=== PATIENT | female | born 2000 | race Caucasian/White ===

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

== ENCOUNTER 2018-01-11 12:00 | Emergency (ER) | payer OTHER ==
[~2018-01-11] VITALS: Ht 170.2 cm; Wt 86.2 kg
--- NOTE | 2018-01-11 12:01 | NUR ---
PT BIBA ALS TO BED 10
[2018-01-11 12:02] VITALS: BP 118/69
--- NOTE | 2018-01-11 12:05 | NUR ---
PATIENT BIBA S/P SEIZURE LASTING 30-45 SECONDS, WITNESSED AT PT WORK. PATIENT STATES SHE WAS PERFORMING NORMAL DUTIES AND COULD FEEL A SEIZURE COMING. PATIENT REPORTS 4 TOTAL SEIZURES IN HER LIFETIME AND ANXIETY, BUT WAS NEVER RX MEDICATION FOR EITHER DIAGNOSIS. PATIENT APPEARS TO HAVE AN ABRASION TO FORHEAD 6 CM IN LENGTH ON THE RIGHT SIDE AND SWOLLEN TONGUE WITH SLIGHT LACERATION ABOUT 2CM IN LENGTH ON THE LEFT SIDE.DENIES N/V/D; SKIN IS PINK/WARM/DRY; AAOX4 WITH EVEN AND STEADY GAIT; LUNGS CLEAR BL; HR EVEN AND REGULAR; PT DENIES ANY FEVER, CP, SOB, OR COUGH AT THIS TIME; PATIENT STATES PAIN OF 6/10 AT THIS TIME; VSS; PATIENT POSITIONED FOR COMFORT; HOB ELEVATED; BEDRAILS UP X2, SZ PRECAUTIONS INITIATED; BED DOWN. ER MD MADE AWARE OF PT STATUS.
[2018-01-11 14:03] VITALS: BP 118/69
--- NOTE | 2018-01-11 14:03 | NUR ---
Patient discharged with v/s stable. Written and verbal after care instructions given and explained. Patient verbalized understanding. Ambulatory with steady gait. All questions addressed prior to discharge. Advised to follow up with PMD FOR NEUROLOGY REFERRAL.
== END 2018-01-11 14:03 | disposition home or self-care (01) ==
LOC: MED 12:00
DX: S00.81XA Abrasion of other part of head, initial encounter (principal); R56.9 Unspecified convulsions; X58.XXXA Exposure to other specified factors, initial encounter; Y93.89 Activity, other specified; Y92.89 Other specified places as the place of occurrence of the external cause; Y99.8 Other external cause status
CPT/HCPCS: 99283

== ENCOUNTER 2021-03-12 19:23 | Emergency (ER) | payer OTHER ==
[~2021-03-12] VITALS: Ht 170.2 cm; Wt 108.0 kg
[2021-03-12 20:01] VITALS: BP 113/72
== END 2021-03-12 22:29 | disposition left against medical advice (07) ==
LOC: MED 19:23
DX: R51.9 Headache, unspecified (principal); Z53.21 Procedure and treatment not carried out due to patient leaving prior to being seen by health care provider

== ENCOUNTER 2021-03-14 21:31 | Emergency (ER) | payer OTHER ==
[~2021-03-14] VITALS: Ht 170.2 cm; Wt 93.0 kg
[2021-03-14 21:40] VITALS: BP 93/70
[2021-03-15] MEDS ORDERED: KETOROLAC 30 MG/ML VIAL IM ONE ×2 (00:20→02:15)
[2021-03-15] MEDS ORDERED: PROCHLORPERAZINE 5 MG TAB PO ONE (00:20)
[2021-03-15] MEDS ORDERED: DIPH25TA53 PO (02:25)
[2021-03-15] MEDS ORDERED: PROC-66 PO (02:25)
[2021-03-15 02:37] VITALS: BP 89/63
== END 2021-03-15 02:35 | disposition home or self-care (01) ==
LOC: MED 21:31
DX: G43.909 Migraine, unspecified, not intractable, without status migrainosus (principal); F41.9 Anxiety disorder, unspecified; Z79.899 Other long term (current) drug therapy
CPT/HCPCS: 81025; 99283; Q0163; Q0164; J1885

== ENCOUNTER 2022-08-05 14:37 | Emergency (ER) | payer OTHER ==
[~2022-08-05] VITALS: Ht 170.2 cm; Wt 107.7 kg
[~2022-08-05 14:37] MED LIST: DIPH25TA53 PO; PROC-66 PO
[2022-08-05 14:59] VITALS: BP 92/69
--- NOTE | 2022-08-05 15:07 | NUR ---
PT AMB TO BED 2.
--- NOTE | 2022-08-05 15:40 | NUR ---
22 Y/O FEMALE BIB SELF C/O "FEELING WEAK" AND NVX1-2 WEEKS. PER PT 1 EPISODE YESTERDAY. DENIES ANY BLOOD IN VOMITUS, ABD PAIN, DIARRHEA. NKA PMH: PSYCHOSOMATIC SEIZURES
[2022-08-05] MEDS ORDERED: ONDANSETRON 4 MG ODT PO ONE (15:45)
[2022-08-05] MEDS ORDERED: LORazepam 1 MG TAB PO ONE (15:45)
[2022-08-05] MEDS ORDERED: MECLIZINE 25 MG TAB PO ONE (15:45)
[2022-08-05 16:07] LABS: BASOPHILS % (AUTO) 0.4 % (0.0-2.0); EOSINOPHILS % (AUTO) 0.5 % (0.0-4.0); HEMOGLOBIN 13.3 g/dL (12.0-16.0); LYMPHOCYTES % (AUTO) 24.4 % (20.5-51.1); MEAN CORPUSCULAR HEMOGLOBIN 26 pg (27-31); MEAN CORPUSCULAR HGB CONC 33 g/dL (33-37); MEAN CORPUSCULAR VOLUME 78.3 fL (80-94); MONOCYTES # (AUTO) 0.6 K/uL (0.8-1.0); MONOCYTES % (AUTO) 7.5 % (1.7-9.3); NEUTROPHILS # (AUTO) 5.4 K/uL (1.8-7.7); NEUTROPHILS % (AUTO) 67.2 % (42.2-75.2); PLATELET COUNT (AUTO) 130 K/uL (140-450); RED BLOOD CELL COUNT(AUTO) 5.11 MIL/uL (4.20-5.40); RED CELL DISTRIBUTION WIDTH 14.8 % (11.6-13.7)
[2022-08-05 16:35] LABS: APPEARANCE,URINE CLEAR (CLEAR); BILIRUBIN,URINE NEGATIVE (NEGATIVE); BLOOD, URINE NEGATIVE (NEGATIVE); COLOR,URINE YELLOW (YELLOW); LEUKOCYTE ESTERASE ,URINE TRACE (NEGATIVE); NITRITE, URINE NEGATIVE (NEGATIVE); UGLUCOSE NEGATIVE (NEGATIVE)
[2022-08-05 16:35] LABS: ALBUMIN 4.3 g/dL (3.4-5.0); ANION GAP 13.6 (8-16); CARBON DIOXIDE 23.9 mmol/L (21-32); CREATININE 0.7 mg/dL (0.6-1.3); POTASSIUM 3.5 mmol/L (3.5-5.1); TOTAL BILIRUBIN 0.1 mg/dL (0.0-1.0)
[2022-08-05] MEDS ORDERED: MECL-303 PO (17:58)
[2022-08-05] MEDS ORDERED: ONDA-188 PO (17:58)
--- NOTE | 2022-08-05 18:20 | NUR ---
Patient discharged with v/s stable. Written and verbal after care instructions given and explained. Patient alert, oriented and verbalized understanding of instructions. Ambulatory with steady gait. All questions addressed prior to discharge. ID band removed. Patient advised to follow up with PMD. Rx of ANTIVERT AND ZOFRAN given. Patient educated on indication of medication including possible reaction and side effects. Opportunity to ask questions provided and answered.
== END 2022-08-05 18:20 | disposition home or self-care (01) ==
LOC: MED 14:37
DX: R42 Dizziness and giddiness (principal); R11.2 Nausea with vomiting, unspecified; Z79.899 Other long term (current) drug therapy
CPT/HCPCS: 36415; 80053; 81003; 81025; 83690; 85025; 99284; J8597; Q0162